=== PATIENT | male | born 1975 | race Caucasian/White ===

== ENCOUNTER 2017-09-04 12:04 | Emergency (ER) | payer OTHER ==
[~2017-09-04] VITALS: Ht 177.8 cm; Wt 104.3 kg
[~2017-09-04 12:04] MED LIST: AMLODIPINE BESY10 MG PO; FLOMAX0.4 MG PO; HYDROCODONE-APA1 TA1 PO; NORVASC10 MG PO
[2017-09-04] MEDS ORDERED: ASPIR 8181 MG PO (12:10)
[2017-09-04] MEDS ORDERED: PROBIOTIC1 EAC1 PO (12:10)
[2017-09-04] MEDS ORDERED: PRILOSEC 20 MG20 MG PO (12:10)
[2017-09-04 13:30] LABS: ABSOLUTE BASOPHILS 0.1 thou/uL (0.0-0.2); ABSOLUTE EOSINOPHILS 0.1 thou/uL (0.0-0.7); ABSOLUTE LYMPHOCYTES 2.3 thou/uL (0.8-5.3); ABSOLUTE MONOCYTES 0.9 thou/uL (0.0-1.2); ABSOLUTE NEUTROPHILS 9.4 thou/uL (1.6-8.1); BASOPHILS 0.7 %; EOSINOPHILS 0.7 %; HEMATOCRIT 50.5 % (42.0-52.0); HEMOGLOBIN 17.6 gm/dL (14.0-18.0); LYMPHOCYTES 18.1 %; MCH 31.3 pg (26.0-34.0); MCHC 34.9 g/dL (28.0-37.0); MCV 89.9 fL (80.0-100.0); MONOCYTES 7.3 %; MPV 9.5 fl. (7.2-11.1); NUCLEATED RBCS 0 /100WBC; PLATELET COUNT* 399 thou/uL (150-400); POLYS 73.2 %; RBC 5.62 mil/uL (4.50-6.00); RDW-CV 13.6 % (10.5-14.5); WBC 12.9 thou/uL (4.0-11.0)
[2017-09-04 13:36] LABS: ANION GAP 14 mmol/L (7-16); BUN 17 mg/dL (7-18); CALCIUM 9.1 mg/dL (8.5-10.1); CHLORIDE 103 mmol/L (98-107); CO2 24 mmol/L (21-32); CREATININE 1.2 mg/dL (0.6-1.3); GLUCOSE 151 mg/dL (70-99); SODIUM 141 mmol/L (136-145)
[2017-09-04 13:37] LABS: POTASSIUM 2.9 mmol/L (3.5-5.1)
[2017-09-04 13:44] LABS: ALBUMIN 4.1 g/dL (3.4-5.0); ALKALINE PHOSPHATASE 120 U/L (46-116); SGOT 40 U/L (15-37); SGPT 97 U/L (30-65); TOTAL BILIRUBIN 0.9 mg/dL (<0.1-1.0); TOTAL PROTEIN 8.1 g/dL (6.4-8.2); TROPONIN-I LEVEL <0.06 ng/mL (<0.06)
[2017-09-04] MEDS ORDERED: PRINIVIL20 MG PO (15:11)
[2017-09-04] MEDS ORDERED: HYDROCHLOROTHIA25 M2 PO (15:11)
[2017-09-04] MEDS ORDERED: CARAFATE 1 GM TA1 GM PO (16:02)
[2017-09-04 16:18] VITALS: BP 180/118
--- NOTE | 2017-09-04 17:08 | EKG ---
[place] [address] ELECTROCARDIOGRAM REPORT Name: RAÚL BERKOWITZ Room: [place]#: [id number] Admission: 09/04/17 Attend Phys: Discharge: 09/04/17 Date of : 71 Report #: [id number] THIS REPORT FOR: //name// [facility] ED Test Date: 2017-09-04 Test Time: 12:17:05 Pat Name: RAÚL BERKOWITZ Department: Room: Gender: M Customer Marketing Intern: PAULO : 1975 Requested By: Peggy Davis Order Number: [id number] MD: Perez Lockhart Measurements Intervals [place] Rate: 134 P: 51 MA: 139 QRS: -18 QRSD: 94 T: 62 QT: 306 QTc: 457 Interpretive Statements Sinus tachycardia Borderline left axis deviatio Anterior infarct, old No previous ECG available for comparison Electronically Signed On 09-04-2017 17:08:17 GOLF COURSE STARTER by Perez Lockhart [email or web address] <ELECTRONICALLY SIGNED> By: Perez Lockhart MD, [facility] 09/04/17 1708 1217 1217 Perez Lockhart MD, FACC /EPI
== END 2017-09-04 16:20 | disposition home or self-care (01) ==
LOC: M.ERS 12:04
PROVIDERS: Personal Emergency Response Attendant
DX: I16.0 Hypertensive urgency (principal); R07.9 Chest pain, unspecified; K21.9 Gastro-esophageal reflux disease without esophagitis; Z87.442 Personal history of urinary calculi; Z88.0 Allergy status to penicillin

== ENCOUNTER 2019-04-22 18:33 | Inpatient (IN) | payer OTHER ==
[~2019-04-22] VITALS: Ht 177.8 cm; Wt 124.7 kg
[~2019-04-22 18:33] MED LIST changes: +ASPIR 8181 MG PO; +CARAFATE 1 GM TA1 GM PO; +HYDROCHLOROTHIA25 M2 PO; +PRILOSEC OTC20 MG PO; +PRINIVIL20 MG PO; +PROBIOTIC1 EAC1 PO
[2019-04-22 18:46] VITALS: BP 228/142
[2019-04-22 19:24] LABS: ABSOLUTE BASOPHILS 0.1 thou/uL (0.0-0.2); ABSOLUTE EOSINOPHILS 0.3 thou/uL (0.0-0.7); ABSOLUTE LYMPHOCYTES 2.1 thou/uL (0.8-5.3); ABSOLUTE MONOCYTES 0.8 thou/uL (0.0-1.2); BASOPHILS 1.2 %; EOSINOPHILS 2.8 %; HEMATOCRIT 49.3 % (42.0-52.0); HEMOGLOBIN 17.7 gm/dL (14.0-18.0); LYMPHOCYTES 22.6 %; MCH 31.9 pg (26.0-34.0); MCV 88.7 fL (80.0-100.0); MONOCYTES 8.8 %; MPV 8.6 fl. (7.2-11.1); NUCLEATED RBCS 0 /100WBC; PLATELET COUNT* 323 thou/uL (150-400); POLYS 64.6 %; RBC 5.55 mil/uL (4.50-6.00); RDW-CV 13.2 % (10.5-14.5); WBC 9.3 thou/uL (4.0-11.0)
[2019-04-22 19:28] LABS: CALCIUM 9.4 mg/dL (8.5-10.1); CREATININE 1.1 mg/dL (0.6-1.3)
[2019-04-22 19:30] LABS: POTASSIUM 2.9 mmol/L (3.5-5.1)
[2019-04-22 19:32] LABS: TOTAL BILIRUBIN 0.6 mg/dL (<0.1-1.0); TOTAL PROTEIN 7.8 g/dL (6.4-8.2)
[2019-04-22 20:12] LABS: URINE BILIRUBIN NEGATIVE (Negative); URINE BLOOD NEGATIVE (Negative); URINE CLARITY CLEAR; URINE COLOR YELLOW; URINE GLUCOSE-RANDOM NEGATIVE (Negative); URINE KETONES NEGATIVE (Negative); URINE LEUKOCYTES-REFLEX NEGATIVE (Negative); URINE NITRITE-REFLEX NEGATIVE (Negative); URINE PROTEIN NEGATIVE (Negative); URINE SPECIFIC GRAVITY 1.015 (1.005-1.030); URINE UROBILINOGEN 0.2 E.U./dl (0.2-1.0)
[2019-04-22 20:23] LABS: AMP/METHAMP Negative (Negative); BARBITURATES Negative (Negative); BENZODIAZEPINES Negative (Negative); COCAINE Negative (Negative); METHADONE Negative (Negative); OPIATES Negative (Negative); PCP Negative (Negative); THC Negative (Negative)
[2019-04-22 22:27] VITALS: BP 187/115
[2019-04-22 22:40] VITALS: BP 178/103
[2019-04-22 23:00] VITALS: BP 182/103
[2019-04-22 23:30] VITALS: BP 161/94
[2019-04-23] VITALS (32 sets, daily range): BP systolic 127–200; BP diastolic 78–118
--- NOTE | 2019-04-23 06:10 | NUR ---
PT TO ICU ROOM 1 AT 2240, ON CARDENE GTT, CURRENTLY RUNNING AT 5MG/HR. PT DENIES PAIN ANYWHERE. SLEEPS THROUGH THE NIGHT. SINUS TACH ON THE MONITOR. ON RA WITH SPO2 IN 90s. CALL LIGHT WITHIN REACH.
[2019-04-23 08:57] LABS: ALBUMIN 3.6 g/dL (3.4-5.0); CALCIUM 8.7 mg/dL (8.5-10.1); CREATININE 0.8 mg/dL (0.6-1.3); POTASSIUM 3.7 mmol/L (3.5-5.1); TOTAL BILIRUBIN 0.7 mg/dL (<0.1-1.0); TOTAL PROTEIN 7.1 g/dL (6.4-8.2)
--- NOTE | 2019-04-23 10:48 | NUR ---
Nutrition: Pt admitted with malignant HTN. 2gm Na diet, tolerating well. Wt: 270#. Pt denied need for nutrition education, "I know I need to stay away from salt." Labs: BG 136, alb 3.6, Na WNL. No other nutrition interventions at this time. Mild to low risk.
--- NOTE | 2019-04-23 13:33 | EKG ---
[place] [address] ELECTROCARDIOGRAM REPORT Name: RAÚL BERKOWITZ Room: [address] ADM IN M.R.#: [id number] Admission: 04/22/19 Attend Phys: Uriah Salazar Discharge: Date of : 71 Report #: [id number] THIS REPORT FOR: //name// [facility] ED Test Date: 2019-04-22 Test Time: 19:13:01 Pat Name: RAÚL BERKOWITZ Department: Room: [facility] Gender: M Continuous Wave Operator: MATUTE : 1975 Requested By: Arturo Gold Order Number: [id number] MD: Elvis Pan Measurements Intervals [place] Rate: 111 P: 6 GA: 171 QRS: -5 QRSD: 101 T: 57 QT: 339 QTc: 461 Interpretive Statements Sinus tachycardia Anteroseptal infarct, old Borderline T abnormalities, inferior leads Compared to ECG 09/04/2017 12:17:05 T-wave abnormality now present Myocardial infarct finding still present Electronically Signed On 04-23-2019 13:32:55 CDT by Elvis Pan [email or web address] <ELECTRONICALLY SIGNED> By: Elvis Pan MD, FACC 04/23/19 1332 12 12 Elvis Pan MD, FACC /EPI
--- NOTE | 2019-04-23 14:15 | NUR ---
VSS.EDITOR PUBLICATIONS IN PLACE.PT DOWNGRADED TO TELEMETRY STATUS.REPORT CALLED TO JAIMIE AND PT BELONGINGS TAKEN TO ROOM 215.MRI COMPLETED.ECHO COMPLETED.PT NPO STATUS UNTIL AFTER ABDOMINAL ULTRASOUND COMPELTED.ULTRASOUND TRANSPORTING PT TO FLOOR AFTER COMPLETED.
--- NOTE | 2019-04-23 14:30 | NUR ---
PT.TO TRANSFER TO TELE BED AFTER HE RETURNS FROM TEST. SPOKE WITH IRINA Rowland. SHE CONFIRMED HE IS INDEPENDENT AT HOME.NO DME. HE IS UNINSURED. GAVE HER THE PACKET FOR UNINSURED AND DISCUSSED WITH IRINA. SHE SAID HE DOES NOT HAVE A PCP. TOLD HER WE COULD MAKE FOLLOWUP APPT.FOR HIM AT [facility] IF HE WOULD LIKE. PAYMENT IS BASED ON SLIDING SCALE. CM WILL FOLLOW UP TOMORROW.
--- NOTE | 2019-04-23 16:38 | 2DMMODE ---
[place] [address] 2 D/M-MODE ECHOCARDIOGRAM Name: RAÚL BERKOWITZ Room: [address] IN [facility]#: [id number] Admission: 04/22/19 Attend Phys: Penny Nash Discharge: Date of : 71 Date of Service: 04/23/19 1638 Report #: [id number] THIS REPORT FOR: //name// APPROVED REPORT Study performed: 04/23/2019 13:28:47 EXAM: Comprehensive 2D, Doppler, and color-flow Echocardiogram Patient Location: In-Patient Room #: 001 Status: routine BSA: 2.39 HR: 98 bpm BP: 176/107 mmHg Rhythm: NSR Other Information Study Quality: Good Indications Hypertension/HDD 2D Dimensions IVSd: 17.28 (7-11mm) LVOT Diam: 21.61 (18-24mm) LVDd: 45.21 mm PWd: 14.87 (7-11mm) Ascending Ao: 40.65 (22-36mm) LVDs: 29.88 (25-40mm) Aortic Root: 37.60 mm Volumes Left Atrial Volume (Systole) LA ESV Index: 28.10 mL/m2 Aortic Valve AoV Peak Phillip.: 1.57 m/s AO Peak Gr.: 9.87 mmHg LVOT Max P.58 mmHg AO Mean Gr.: 5.18 mmHg LVOT Mean P.72 mmHg LVOT Max V: 1.18 m/s AO V2 VTI: 24.53 cm LVOT Mean V: 0.76 m/s YEMI (VTI): 3.18 cm2 LVOT V1 VTI: 21.29 cm Mitral Valve E/A Ratio: 1.00 MV Decel. Time: 160.19 ms MV E Max Phillip.: 0.92 m/[place] [address] 2 D/M-MODE ECHOCARDIOGRAM Name: RAÚL BERKOWITZ Room: [address] IN .R.#: [id number] Admission: 04/22/19 Attend Phys: Penny Nash Discharge: Date of : 71 Date of Service: 04/23/19 1638 Report #: [id number] MV PHT: 46.45 ms MVA (PHT): 4.74 cm2 TDI E/Lateral E': 8.36 E/Medial E': 7.08 Medial E' Phillip.: 0.13 m/s Lateral E' Phillip.: 0.11 m/s Pulmonary Valve PV Peak Phillip.: 1.49 m/s PV Peak Gr.: 8.82 mmHg Left Ventricle The left ventricle is normal size. There is normal LV segmental wall motion. Moderate concentric left ventricular hypertrophy. Left ventricular systolic function is normal. The left ventricular ejection fraction is within the normal range. LVEF is 60-65%. The left ventricular diastolic function is normal. Right Ventricle The right ventricle is normal size. The right ventricular systolic function is normal. Atria The left atrium size is normal. The right atrium size is normal. Aortic Valve The aortic valve is normal in structure. No aortic regurgitation is present. There is no aortic valvular stenosis. Mitral Valve The mitral valve is normal in structure. Mild mitral regurgitation. No evidence of mitral valve stenosis. Tricuspid Valve The tricuspid valve is normal in structure. Trace tricuspid regurgitation. Unable to assess PA pressure. Pulmonic Valve The pulmonary valve is normal in structure. There is no pulmonic valvular regurgitation. Great Vessels Aortic root is mildly dilated. IVC is normal in size and collapses >50% [place] [address] 2 D/M-MODE ECHOCARDIOGRAM Name: RAÚL BERKOWITZ Room: [address] IN [facility]#: [id number] Admission: 04/22/19 Attend Phys: Penny Nash Discharge: Date of : 71 Date of Service: 04/23/19 1638 Report #: [id number] Pericardium There is no pericardial effusion. <Conclusion> Moderate concentric left ventricular hypertrophy. LVEF is 60-65%. Mild mitral regurgitation. Aortic root is mildly dilated. <ELECTRONICALLY SIGNED> By: Francisco Escobar MD, FACC 04/23/19 1638 37 37 Francisco Escobar MD, FACC /INF
--- NOTE | 2019-04-23 17:41 | NUR ---
PT TRANSFERED FROM ICU. ON RA. VSS. [place] ON CRUSHER WET GROUND MICA. NO COMPLAINT. BP 185/109. HYDRALIZINE GIVEN WHEN DUE. CALL LIGHT AT REACH. WILL CONTINUE TO MONITOR
[2019-04-24] VITALS (7 sets, daily range): BP systolic 134–175; BP diastolic 79–113
[2019-04-24 02:07] LABS: GLYCOHEMOGLOBIN (HGB A1C) 5.3 % (4.8-5.6)
[2019-04-24 05:22] LABS: ABSOLUTE BASOPHILS 0.1 thou/uL (0.0-0.2); ABSOLUTE EOSINOPHILS 0.3 thou/uL (0.0-0.7); ABSOLUTE LYMPHOCYTES 1.6 thou/uL (0.8-5.3); ABSOLUTE MONOCYTES 0.6 thou/uL (0.0-1.2); BASOPHILS 0.9 %; EOSINOPHILS 4.5 %; HEMATOCRIT 47.1 % (42.0-52.0); HEMOGLOBIN 16.4 gm/dL (14.0-18.0); LYMPHOCYTES 24.5 %; MCH 31.8 pg (26.0-34.0); MCHC 34.9 g/dL (28.0-37.0); MCV 91.1 fL (80.0-100.0); MONOCYTES 9.2 %; MPV 8.3 fl. (7.2-11.1); NUCLEATED RBCS 0 /100WBC; POLYS 60.9 %; RBC 5.16 mil/uL (4.50-6.00); RDW-CV 13.8 % (10.5-14.5); WBC 6.5 thou/uL (4.0-11.0)
--- NOTE | 2019-04-24 05:25 | NUR ---
ASSUMED PATIENT CARE AT 1900. PATIENT ALRET AND ORIENTED TIMES FOUR. UP AD AMOL IN ROOM. NO COMPLAINTS OF PAIN OR DISCOMFORT NOTED. BLISTER RUST ERADICATOR AND HOURLY ROUNDING COMPLETED CHARTED.
[2019-04-24 05:31] LABS: PLATELET COUNT* 234 thou/uL (150-400)
[2019-04-24 05:35] LABS: CALCIUM 9.1 mg/dL (8.5-10.1); CREATININE 0.8 mg/dL (0.6-1.3); POTASSIUM 4.3 mmol/L (3.5-5.1)
[2019-04-24 05:54] LABS: CHOLESTEROL 183 mg/dL (<200); HDL CHOLESTEROL 39 mg/dL (>40); LDL CHOLESTEROL 121 mg/dL (<100); TC:HDL 4.7 Ratio (Not establshd); TRIGLYCERIDE 117 mg/dL (<150); VLDL 23 mg/dL (<40)
[2019-04-24 06:00] LABS: SERUM ASSESSMENT Clear
--- NOTE | 2019-04-24 12:33 | NUR ---
Pt discharging to home today. CM provided Pt with safety net clinic info and encouraged to call and schedule an appt with an area location. S/o in room and will transport
--- NOTE | 2019-04-24 13:58 | NUR ---
SPOKE WITH DR KEE EARLIER REGARDING DISCHARGE, PER DR KEE IF AFTER GIVING ADDITIONAL LOSARTAN AND AMLODIPINE DOSE PT BLOOD PRESSURE IS <160/100 PT MAY BE DISCHARGED. TOOK PT BLOOD PRESSURE, IT WAS 185/107 AND 205/113. PT VERY ANXIOUS ABOUT LEAVING. PAGED DR KEE, ORDER FOR CLONIDINE RECEIVED, DR KEE BELIEVES THAT A LOT OF THIS IS ANXIETY DRIVEN, PER DR KEE NEED TO ENCOURAGE PT TO STAY ANOTHER NIGHT TO BETTER CONTROL BLOOD PRESSURE, BUT IF HE WILL NOT STAY, THEN HE CAN BE SENT HOME WITH PRESCRIPTIONS AGAINST MEDICAL ADVICE. SPOKE WITH PT, HE IS GOING TO STAY FOR NOW. WILL REASSESS THIS AFTERNOON.
--- NOTE | 2019-04-24 16:08 | NUR ---
pt blood pressure now 134/79. pt very eager to go home, paged dr arriaga
[2019-04-24] MEDS ORDERED: CLONIDINE HCL0.2 M2 PO (16:53)
[2019-04-24] MEDS ORDERED: COZAAR 25 MG TA25 M1 PO (16:53)
--- NOTE | 2019-04-24 17:04 | NUR ---
CALLED IN PRESCRIPTIONS FOR LOSARTAN 50 MG QD #30 NO REFILLS AND CLONIDINE 0.2 MG BID #[address] KEE TO [facility].
--- NOTE | 2019-04-24 17:05 | NUR ---
PT MAY DISCHARGE
--- NOTE | 2019-04-24 17:28 | NUR ---
PT EDUCATION MATERIALS REVIEWED WITH PT AND . DISCHARGE INSTRUCTIONS AND EDUCATION INSTRUCTIONS SENT WITH PT. IV AND TELE WERE DISCONTINUED.
--- NOTE | 2019-04-27 19:25 | CON ---
[address] [address] CONSULTATION Name: RAÚL BERKOWITZ Room: [address] IN M.R.#: [id number] Admission: 04/22/19 Attend Phys: Uriah Salazar Discharge: 04/24/19 Date of : 71 Report #: [id number] THIS REPORT FOR: //name// CC: [facility] physician/PCP Penny Nash DATE OF SERVICE: 04/23/2019 HISTORY OF PRESENT ILLNESS: This is a 44-year-old male patient who was evaluated by me for hypertensive encephalopathy. This patient indicates that he has known that he has high blood pressure for more than 2 years. He did not take any treatment because he cannot afford that. He came to Emergency Room and had some blurring of the vision and some ear problem, mostly nonspecific symptoms. His blood pressure was very high. The history of blurry vision is not very clear. It looks like he had some in the right eye, but he is doing better in that regard. He has some trouble with the dental also. REVIEW OF SYSTEMS: A 14-point review of systems was carried out. He has some kidney stone. His biggest problem has been high blood pressure. Rest of the 14-point review of system was noncontributory. PAST MEDICAL HISTORY: Positive for hypertension. FAMILY HISTORY: Positive for cardiovascular disease, both in father and mother. SOCIAL HISTORY: He drinks about 1 beer a day, sometimes 2. He used to smoke but does not smoke now. PHYSICAL EXAMINATION: NEUROLOGIC: Indicates the patient is alert, responsive, able to follow simple and complex command. His speech looks intact. His memory and fund of knowledge is intact. Cranial nerve examination 2-12 is difficult to carry out because I could not look at the patient's fundus, I could not visualize it. Otherwise, it looks unremarkable. He has symmetrical strength, sensation, reflexes and tone. There is no cerebellar sign. EXTREMITIES: Pulses are palpable. He has no edema, cyanosis or jaundice. CARDIAC: Appear unremarkable. LUNGS: No respiratory difficulty was noticed. VITAL SIGNS: Blood pressure still is 185/109, temperature is 97.8 and respirations 16. LABORATORY DATA: Indicate a normal white count. IMAGING STUDIES: Were reviewed and his CT and MRI demonstrated [place] [address] CONSULTATION Name: RAÚL BERKOWITZ Room: [address]#: [id number] Admission: 04/22/19 Attend Phys: Uriah Salazar Discharge: 04/24/19 Date of : 71 Report #: [id number] RECOMMENDATIONS: 1. Main management is going to be evaluation and management of his hypertension, which I will defer to you. 2. He does appear to have PRES. These patients are predisposed to have seizure. He should be closely monitored for any seizure. He should not drive. He should drive only after PRES findings clear up on his MRI, which might take a few weeks to few months. His carotid and MRA are still clean and echo looks reasonable, and the management is going to be mainly the management of his hypertension and closely monitor him for seizure. I discussed all of it with the patient and I will discuss it with you. Please let me know if any questions or further followup is needed. <ELECTRONICALLY SIGNED> By: Charles Espinoza MD 04/27/191924 22 connie Espinoza MD /nt
== END 2019-04-24 17:30 | disposition home or self-care (01) | DRG 77 ==
LOC: M.ERS 18:33 → M.TBA-ER 21:04 → M.ERS 21:04 → M.ICU 21:39 → M.TBA-ER 21:39 → M.ICU 22:25 → M.2W 04-23 14:51
PROVIDERS: Internal Medicine; Physician Assistant; ADMIT Internal Medicine
DX: I67.4 Hypertensive encephalopathy (principal); I67.83 Posterior reversible encephalopathy syndrome; I10 Essential (primary) hypertension; K21.9 Gastro-esophageal reflux disease without esophagitis; K04.7 Periapical abscess without sinus; E87.6 Hypokalemia; E66.9 Obesity, unspecified; Z87.442 Personal history of urinary calculi; Z79.899 Other long term (current) drug therapy; Z79.82 Long term (current) use of aspirin; Z88.0 Allergy status to penicillin; Z82.49 Family history of ischemic heart disease and other diseases of the circulatory system; Z87.891 Personal history of nicotine dependence; Z68.39 Body mass index [BMI] 39.0-39.9, adult

== ENCOUNTER 2020-07-02 09:54 | Emergency (ER) | payer OTHER ==
[~2020-07-02] VITALS: Ht 177.8 cm; Wt 109.8 kg
[~2020-07-02 09:54] MED LIST changes: +CLONIDINE HCL0.2 M2 PO; +COZAAR 25 MG TA25 M1 PO
[2020-07-02] MEDS ORDERED: HYDROCHLOROTHIA25 M2 PO (10:14)
[2020-07-02] MEDS ORDERED: IBUPROFEN 800800 MG PO (10:24)
[2020-07-02] MEDS ORDERED: HYDROCODON-ACE1 EAC7 PO (10:24)
[2020-07-02] MEDS ORDERED: CLINDAMYCIN HC150 MG PO (10:24)
[2020-07-02 10:34] VITALS: BP 207/97
== END 2020-07-02 10:35 | disposition home or self-care (01) ==
LOC: M.ERS 09:54
DX: A69.1 Other Vincent's infections (principal); K21.9 Gastro-esophageal reflux disease without esophagitis; I10 Essential (primary) hypertension; Z88.0 Allergy status to penicillin; Z87.442 Personal history of urinary calculi